=== PATIENT | female | born 2000 | race Hispanic/Latino ===

== ENCOUNTER 2023-08-07 08:23 | Emergency (ER) | payer OTHER ==
[~2023-08-07] VITALS: Ht 157.5 cm; Wt 58.8 kg
[2023-08-07] MEDS ORDERED: AZO1CAP2 PO (08:38)
[2023-08-07 08:52] LABS: URINE PREG TEST NEGATIVE (NEGATIVE)
[2023-08-07] MEDS ORDERED: CEFD1CAP9 PO (11:48)
[2023-08-07 11:54] VITALS: BP 119/70; TEMP 97.7; O2SAT 98
[2023-08-07 13:36] LABS: CHLAMYDIA DNA AMPLIFICATION NEGATIVE (NEGATIVE); GC DNA AMPLIFICATION NEGATIVE (NEGATIVE)
== END 2023-08-07 11:56 | disposition home or self-care (01) ==
LOC: M ED 08:23
DX: R30.0 Dysuria (principal); N30.00 Acute cystitis without hematuria; Z79.2 Long term (current) use of antibiotics